=== PATIENT | male | born 1980 | race Caucasian/White ===

== ENCOUNTER 2017-02-28 08:08 | Emergency (ER) | payer BC, OTHER ==
[~2017-02-28] VITALS: Ht 170.2 cm; Wt 79.4 kg
--- NOTE | ~2017-02-28 | CR63 ---
[facility] A Service of [facility] & [facility] / [facility] RADIOLOGY TEXT RESULTS PATIENT: GABRIELA RUDD LOCATION: CFTX : 80 UNIT #: [id number] AGE: [address]: STEFANIE FERREIRA SEX: M ORDER DR: [id number] [facility] [address] [place], [place] [address] [id number] MR#: [id number] Acc #: [id number] NAME: GABRIELA RUDD : 1980 SEX: M STUDY DATE/TIME: 02/28/2017 9:45 UNIT: [id number] ROOM: STUDY DESCRIPTION: CR Chest 2 View Attending Physician: Stefanie Ferreira Aprn Ordering Physician: Stefanie Ferreira Aprn Primary Care Physician: Primary Care Physician No MEDICAL IMAGING REPORT This report is preliminary unless electronic signature is present EXAM Chest x-ray 02/28 INDICATIONS Fever, cough, congestion with muscle aches for 3 days. History of smoking. FINDINGS 2 views of the chest were obtained. No comparison. The heart size is normal. There is diffuse mild infiltrate in the right lung, most pronounced in the right middle lobe. This is in keeping with a diffuse pneumonia. Left lung is clear. No pneumothorax. IMPRESSION Diffuse pneumonia in the right lung, most pronounced in the middle lobe. Radiographic follow up to resolution is recommended. Dictated by... Gutierrez Morales Jr., M.D. THIS IS AN ELECTRONICALLY VERIFIED REPORT Gutierrez Morales Jr., M.D. at 02/28/2017 4:39 PM CLAUDIAK/juan TD: 02/28/2017 14:41 JOB #: [id number] MEDICAL IMAGING REPORT Page 1 of 1 COPY
[2017-02-28 11:01] LABS: INFLUENZA A NEG (NEG); INFLUENZA B NEG (NEG)
== END 2017-02-28 11:17 | disposition home or self-care (01) ==
LOC: CFTX 08:08 → CED 08:08 → CFTX 10:10
DX: J18.9 Pneumonia, unspecified organism (principal); F17.210 Nicotine dependence, cigarettes, uncomplicated; Z88.0 Allergy status to penicillin
CPT/HCPCS: 71020; 87651; 87804; 94640; 99283